=== PATIENT | female | born 1940 | race Caucasian/White ===

== ENCOUNTER 2017-03-21 15:56 | Emergency (ER) | payer MEDICARE ==
[2017-03-21] MEDS ORDERED: Sodium Chloride 0.9% 1,000 ML IV ONE ×2 (16:19)
[2017-03-21] MEDS ORDERED: Sodium Chloride 0.9% 1,000 ML ONE (16:30)
[2017-03-21 16:49] LABS: BASO % 0.5 % (0.0-2.0); EOS % 0.2 % (0.0-4.0); HEMATOCRIT 43.9 % (34.0-47.0); LYMPH # 1.1 K/uL (1.0-4.3); LYMPH % 15.2 % (20.0-40.0); MEAN CELL VOLUME 84.6 fL (81.0-99.0); MEAN CORPUSCULAR HEMOGLOBIN 27.4 pg (27.0-31.0); MEAN CORPUSCULAR HGB CONC 32.4 g/dL (33.0-37.0); MEAN PLATELET VOLUME 8.8 fL (7.2-11.7); MONO # 0.2 K/uL (0.0-0.8); MONO % 2.8 % (0.0-10.0); RED CELL DISTRIBUTION WIDTH 14.1 % (11.5-14.5); WHITE BLOOD COUNT 7.1 K/uL (4.8-10.8)
--- NOTE | 2017-03-21 16:49 | C.PDOC ---
History Of Present Illness 76-year-old female, presents to the emergency department with complaints of dizziness, that developed after breakfast this morning, which was followed by multiple episodes of non-bloody/non-bilious vomiting. Patient states she has mild epigastric pain, and has not taken any meds for relief. Patient denies headaches, ringing in ears, shortness of breath, chest pain or any other associated symptoms. No other complaints at this time. Time Seen by Provider: 03/21/17 16:08 Chief Complaint (Nursing): Abdominal Pain History Per: Patient History/Exam Limitations: no limitations Onset/Duration Of Symptoms: Days Current Symptoms Are (Timing): Still Present Past Medical History Reviewed: Historical Data, Nursing Documentation, Vital Signs Vital Signs: Last Vital Signs Temp 98.1 F 03/21/17 18:36 Pulse 80 03/21/17 18:36 Resp 16 03/21/17 18:36 BP 122/81 03/21/17 18:36 Pulse Ox 96 03/21/17 18:53 - Medical History PMH: HTN, Hypercholesterolemia Family History: States: Unknown Family Hx - Social History Hx Alcohol Use: No Hx Substance Use: No - Immunization History Hx Tetanus Toxoid Vaccination: No Hx Influenza Vaccination: Yes Hx Pneumococcal Vaccination: No Review Of Systems Except As Marked, All Systems Reviewed And Found Negative. Cardiovascular: Negative for: Chest Pain Respiratory: Negative for: Shortness of Breath Gastrointestinal: Positive for: Nausea, Vomiting, Abdominal Pain Neurological: Positive for: Dizziness Physical Exam - Physical Exam Appears: Non-toxic, No Acute Distress Skin: Normal Color, Warm, Dry Eye(s): bilateral: Normal Inspection, PERRL, EOMI Neck: Normal Cardiovascular: Rhythm Regular, No Murmur Respiratory: Normal Breath Sounds, No Rales, No Rhonchi Gastrointestinal/Abdominal: Normal Exam, Soft, No Tenderness Back: Normal Inspection Extremity: Normal ROM Neurological/Psych: Oriented x3, Normal Speech, Normal Cognition, No Cerebellar Signs Gait: Steady ED Course And Treatment - Laboratory Results Result Diagrams: 03/21/17 16:41 03/21/17 16:41 ECG: Interpreted By Me ECG Rhythm: Sinus Rhythm ECG Interpretation: No Acute Changes Interpretation Of ECG: LVH Rate From EC O2 Sat by Pulse Oximetry: 96 - CT Scan/US head Other Rad Studies (CT/US): Radiology Report Reviewed CT/US Interpretation: Accession No. : [id number]. Patient Name / ID : LUCIE DENSON / [id number]. Exam Date : 03/21/2017 16:57:01 ( Approved ). Study Comment : Sex / Age : F / 76Y. Creator : Pal Hernandez. Dictator : Pal Hernandez. Manager Of Purchasing : Fire Operations Forester : Pal Hernandez. Approver2 : Report Date : 03/21/2017 17:04:01. My Comment : . PROCEDURE: CT HEAD WITHOUT CONTRAST. HISTORY: dizzness. COMPARISON: Comparison is made to the previous MRI of the brain dated 12/06/2014. TECHNIQUE: Axial computed tomography images were obtained through the head/brain without intravenous contrast. Radiation dose: Total exam DLP = 805.38 mGy-cm. This CT exam was performed using one or more of the following dose reduction techniques: Automated exposure control, adjustment of the mA and/or kV according to patient size, and/or use of iterative reconstruction technique. FINDINGS: HEMORRHAGE: No intracranial hemorrhage. BRAIN: No mass effect or edema. Mild atrophy and mild chronic microvascular white matter ischemic disease are again noted. VENTRICLES: Unremarkable. No hydrocephalus. CALVARIUM: Unremarkable. PARANASAL SINUSES: Unremarkable as visualized. No significant inflammatory changes. MASTOID AIR CELLS: Unremarkable as visualized. No inflammatory changes. OTHER FINDINGS: None. IMPRESSION: No evidence of acute intracranial hemorrhage intracranial collection mass effect or midline shift. Mild atrophy and chronic microvascular ischemic disease. Medical Decision Making Medical Decision Making: Pt feeling better post w/u CT LAbs EKS unremarkable No indication of central cause Plan dc home pcp follow up Disposition - Disposition Referrals: Florecita Jimenez MD [Non-Staff] - Disposition: HOME/ ROUTINE Disposition Time: 18:38 Condition: FAIR Additional Instructions: Return to the ED for any new or worsening symptoms Follow up with dr Villanueva this week Prescriptions: Meclizine HCl 1 tab PO TID PRN #20 tablet PRN Reason: .dizzness Instructions: Dizziness (ED) - Clinical Impression Clinical Impression: Dizziness - Scribe Statement The provider has reviewed the documentation as recorded by the Saraibbaldev Kaminski All medical record entries made by the Saraibe were at my direction and personally dictated by me. I have reviewed the chart and agree that the record accurately reflects my personal performance of the history, physical exam, medical decision making, and the department course for this patient. I have also personally directed, reviewed, and agree with the discharge instructions and disposition.
--- NOTE | 2017-03-21 17:05 | CT ---
PROCEDURE: CT HEAD WITHOUT CONTRAST. HISTORY: dizzness COMPARISON: Comparison is made to the previous MRI of the brain dated 12/06/2014 TECHNIQUE: Axial computed tomography images were obtained through the head/brain without intravenous contrast. Radiation dose: Total exam DLP = 805.38 mGy-cm. This CT exam was performed using one or more of the following dose reduction techniques: Automated exposure control, adjustment of the mA and/or kV according to patient size, and/or use of iterative reconstruction technique. FINDINGS: HEMORRHAGE: No intracranial hemorrhage. BRAIN: No mass effect or edema. Mild atrophy and mild chronic microvascular white matter ischemic disease are again noted. VENTRICLES: Unremarkable. No hydrocephalus. CALVARIUM: Unremarkable. PARANASAL SINUSES: Unremarkable as visualized. No significant inflammatory changes. MASTOID AIR CELLS: Unremarkable as visualized. No inflammatory changes. OTHER FINDINGS: None. IMPRESSION: No evidence of acute intracranial hemorrhage intracranial collection mass effect or midline shift. Mild atrophy and chronic microvascular ischemic disease.
[2017-03-21 17:14] LABS: CHLORIDE 97 mmol/L (98-107); POTASSIUM 4.2 mmol/L (3.6-5.2); SODIUM 136 mmol/L (132-148)
[2017-03-21 17:17] LABS: ALB/GLOB RATIO 1.2 (1.0-2.1); ALKALINE PHOSPHATASE 85 U/L (38-126); ALT/SGPT 30 U/L (9-52); AST/SGOT 47 U/L (14-36); BILIRUBIN,TOTAL 0.9 mg/dL (0.2-1.3); BLOOD UREA NITROGEN 17 mg/dL (7-17); CARBON DIOXIDE 28 mmol/L (22-30); GFR AFRICAN-AMERICAN > 60; GLUCOSE,RANDOM 119 mg/dL (65-105); TOTAL PROTEIN 7.5 g/dL (6.3-8.3)
[2017-03-21 18:37] VITALS: BP 122/81; PULSE 80; RESP 16; TEMP 98.1
[2017-03-21 18:41] VITALS: O2SAT 96
[2017-03-21 18:59] LABS: RBC URINE 3 /hpf (0-3); URINE BACTERIA FEW (<OCC); URINE BILIRUBIN NEGATIVE (NEGATIVE); URINE BLOOD NEGATIVE (NEGATIVE); URINE COLOR Yellow (YELLOW); URINE GLUCOSE (UA) NORMAL (Normal); URINE KETONE 1+ mg/dL (NEGATIVE); URINE LEUKOCYTE ESTERASE NEG Leu/uL (Negative); URINE PROTEIN NEGATIVE (NEGATIVE); URINE UROBILINOGEN NORMAL mg/dL (0.2-1.0); WBC URINE 4 /hpf (0-5)
--- NOTE | 2017-03-23 00:10 | CARD ---
APPROVED REPORT EKG Measurement Heart [id number] <Conclusion> Normal sinus rhythm Minimal voltage criteria for LVH, may be normal variant Nonspecific ST abnormality Abnormal ECG
== END 2017-03-21 19:14 | disposition home or self-care (01) ==
LOC: C.ER 15:56
DX: R42 Dizziness and giddiness (principal)
CPT/HCPCS: 70450; 80053; 81001; 82948; 84484; 85025; 93005; 96361; 96374; 99285; J2405; J7040

== ENCOUNTER 2019-02-09 07:18 | Day surgery (SDC) | payer OTHER, MEDICAID ==
[2019-02-08 14:07] VITALS: BMI 22.3
[2019-02-09] MEDS ORDERED: Lactated Ringer's 1,000 ML IV ONE (08:50)
[2019-02-09] MEDS ORDERED: Propofol 10 mg/ml Inj (20 ML) ONE (08:53)
[2019-02-09] MEDS ORDERED: Midazolam 2 MG/2 ML VIAL ONE (08:54)
[2019-02-09 09:47] VITALS: TEMP 98.1
[2019-02-09 10:22] VITALS: BP 130/60; PULSE 70; RESP 19; O2SAT 98
== END 2019-02-09 10:17 | disposition home or self-care (01) ==
LOC: C.ENDO 07:18
PROVIDERS: ATTEND Internal Medicine Gastroenterology
DX: Z12.11 Encounter for screening for malignant neoplasm of colon (principal); D12.0 Benign neoplasm of cecum; K64.8 Other hemorrhoids
CPT/HCPCS: 45385; 88305; J2704; J7120

== ENCOUNTER 2019-02-22 12:27 | Emergency (ER) | payer OTHER ==
--- NOTE | 2019-02-22 13:01 | C.PDOC ---
History Of Present Illness Patient is a 78 year old female with pmhx of HLD and pre-diabetes who presents to the ED today accompanied by family with reports of severe dizziness followed by an episode of vomiting prior to arrival. Patient reports she was at a matt class at her senior center and began to feel dizzy. Patient reports as though the room was spinning and had difficulty maintaining her equilibrium when walking. Patient then had an witnessed episode of emesis which was reported as pinkish tinged, however patient states it consisted of saliva and fruit salad she had prior to class. Patient denies recent travel, dietary changes, sick contacts, confusion, LOC, fevers, chest pain, SOB, nausea, diarrhea. <Joie Peacock - Last Filed: 02/22/19 14:33> History Per: Patient History/Exam Limitations: no limitations Onset/Duration Of Symptoms: Hrs Current Symptoms Are (Timing): Still Present Activity At Onset Of Symptoms: Exertional Activity Possible Causative Factor(s): Vertigo Fall Associated With With Symptoms: No Recent travel outside of the [place]: No Additional History Per: Family - Symptoms Of CVA Associated Symptoms: Decreased Ability To Walk. denies: Impaired Speech Recent Aspirin Use: Yes (Last Taken) <Joie Peacock - Last Filed: 02/22/19 14:33> <Vinayak Urban - Last Filed: 02/22/19 14:44> Time Seen by Provider: 02/22/19 12:34 Chief Complaint (Nursing): Dizziness/Lightheaded Past Medical History Reviewed: Historical Data, Nursing Documentation, Vital Signs Vital Signs: Last Vital Signs Temp 98.0 F 02/22/19 12:38 Pulse 67 02/22/19 12:38 Resp 20 02/22/19 12:38 BP 159/87 H 02/22/19 12:38 Pulse Ox 97 02/22/19 12:38 - Medical History PMH: Alzheimer's Disease, Anxiety, Arthritis, HTN (NO MEDICATION), Hypercholesterolemia, Osteoporosis Denies: Depression, Fractures, Chronic Kidney Disease Surgical History: No Surg Hx Family History: States: Unknown Family Hx - Social History Hx Tobacco Use: No Hx Alcohol Use: No Hx Substance Use: No - Immunization History Hx Tetanus Toxoid Vaccination: No Hx Influenza Vaccination: Yes Hx Pneumococcal Vaccination: No <Joie Peacock - Last Filed: 02/22/19 14:33> Vital Signs: Last Vital Signs Temp 98.0 F 02/22/19 12:38 Pulse 75 02/22/19 13:36 Resp 17 02/22/19 13:36 BP 114/70 02/22/19 13:36 Pulse Ox 97 02/22/19 14:33 <Vinayak Urban - Last Filed: 02/22/19 14:44> Review Of Systems Constitutional: Negative for: Fever, Chills, Weakness Eyes: Negative for: Vision Change Cardiovascular: Negative for: Chest Pain, Palpitations, Light Headedness Respiratory: Negative for: Cough, Shortness of Breath Gastrointestinal: Positive for: Vomiting. Negative for: Nausea, Abdominal Pain, Diarrhea, Melena, Hematochezia Genitourinary: Negative for: Dysuria Neurological: Positive for: Incoordination, Dizziness (vertigo). Negative for: Weakness, Numbness, Confusion, Altered Mental Status <Joie Peacock - Last Filed: 02/22/19 14:33> Physical Exam - Physical Exam Appears: Non-toxic, No Acute Distress Skin: Normal Color, Warm, Dry, No Pale Head: Atraumatic, Normacephalic Eye(s): bilateral: Normal Inspection, PERRL, EOMI, Other (slight nystagmus when looking left) Oral Mucosa: Moist Neck: Normal Cardiovascular: Rhythm Regular, No Edema, No Murmur Respiratory: Normal Breath Sounds, No Accessory Muscle Use Gastrointestinal/Abdominal: Normal Exam, Bowel Sounds, Soft, No Tenderness, No Distention Extremity: No Tenderness, No Calf Tenderness Neurological/Psych: Oriented x3, Normal Speech, Normal Cognition, Normal Motor, Normal Sensation <Joie Peacock - Last Filed: 02/22/19 14:33> ED Course And Treatment - Laboratory Results Result Diagrams: 02/22/19 13:27 02/22/19 13:27 Lab Interpretation: Normal ECG: Viewed By Me ECG Rhythm: Sinus Rhythm ECG Interpretation: Abnormal Interpretation Of ECG: Normal Sinus Rhythm. Possible left atrial enlargement. Nonspecific ST abnormality. Abnormal EKG Rate From EC O2 Sat by Pulse Oximetry: 97 Pulse Ox Interpretation: Normal Progress Note: Patient reevaluated at bedside. Reports improvement in symptoms of vertigo. No nausea and vomiting since arrival. Able to ambulate with assistance without vertigo. Gait steady. Reevaluation Time: 02:20 <Joie Peacock - Last Filed: 02/22/19 14:33> - Laboratory Results Result Diagrams: 02/22/19 13:27 02/22/19 13:27 Lab Results: Total Bilirubin 0.5 mg/dL (0.2-1.3) 02/22/19 13:27 AST 35 U/L (14-36) 02/22/19 13:27 ALT 23 U/L (9-52) 02/22/19 13:27 Alkaline Phosphatase 92 U/L (38-126) 02/22/19 13:27 Total Protein 7.4 g/dL (6.3-8.3) 02/22/19 13:27 Albumin 4.4 g/dL (3.5-5.0) 02/22/19 13:27 Globulin 3.0 gm/dL (2.2-3.9) 02/22/19 13:27 Albumin/Globulin Ratio 1.5 (1.0-2.1) 02/22/19 13:27 Lipase 231 U/L (23-300) 02/22/19 13:27 <Vinayak Urban - Last Filed: 02/22/19 14:44> Medical Decision Making Medical Decision Makin78 year old female presenting with vertigo induced emesis CBC CMP Lipase EKG Meclizine 50mg Labs WNL Symptoms improved with Meclizine <Joie Peacock - Last Filed: 02/22/19 14:33> Medical Decision Making: Seen and examined with resident. 78 y/o F p/w vertigo. On exam, positive Dixon Hallpike. <Vinayak Urban - Last Filed: 02/22/19 14:44> Disposition Counseled Patient/Family Regarding: Studies Performed, Diagnosis, Need For Followup, Rx Given - Disposition Disposition Time: 14:28 - POA Present On Arrival: None <Joie Peacock - Last Filed: 02/22/19 14:33> <Vinayak Urban - Last Filed: 02/22/19 14:44> - Disposition Referrals: Alex Amin MD [Staff Provider] - Disposition: HOME/ ROUTINE Condition: STABLE Prescriptions: Meclizine [Antivert] 25 mg PO TID PRN #20 tab PRN Reason: Dizziness Instructions: Vertigo (a Type of Dizziness) Forms: [facility] (Bulgarian) - Clinical Impression Clinical Impression: Vertigo
[2019-02-22 13:04] VITALS: TEMP 98; O2SAT 97; BMI 23.8
[2019-02-22 13:31] LABS: BASO % 0.4 % (0.0-2.0); EOS # 0.1 K/uL (0.0-0.7); EOS % 1.9 % (0.0-4.0); HEMOGLOBIN 14.1 g/dL (11.0-16.0); MEAN CORPUSCULAR HEMOGLOBIN 29.5 pg (27.0-31.0); MEAN CORPUSCULAR HGB CONC 33.6 g/dL (33.0-37.0); MEAN PLATELET VOLUME 9.4 fL (7.2-11.7); MONO # 0.4 K/uL (0.0-0.8); MONO % 5.9 % (0.0-10.0); NEUT # 4.8 K/uL (1.8-7.0); NEUT % 64.8 % (50.0-75.0); NRBC % 0.1 % (0.0-2.0); RBC 4.77 Mil/uL (3.80-5.20); RED CELL DISTRIBUTION WIDTH 14.5 % (11.5-14.5); WHITE BLOOD COUNT 7.3 K/uL (4.8-10.8)
[2019-02-22 13:33] LABS: MEAN CELL VOLUME 87.9 fL (81.0-99.0)
[2019-02-22 13:45] LABS: ALB/GLOB RATIO 1.5 (1.0-2.1); ALBUMIN 4.4 g/dL (3.5-5.0); ALT/SGPT 23 U/L (9-52); AST/SGOT 35 U/L (14-36); BLOOD UREA NITROGEN 29 mg/dL (7-17); CALCIUM 10.4 mg/dl (8.6-10.4); GFR NON-AFRICAN AMERICAN > 60; LIPASE 231 U/L (23-300)
[2019-02-22 14:08] VITALS: BP 114/70; PULSE 75; RESP 17
--- NOTE | 2019-02-24 00:03 | CARD ---
APPROVED REPORT Date of service: 02/22/2019 EKG Measurement Heart [id number] <Conclusion> Normal sinus rhythm Possible Left atrial enlargement Nonspecific ST abnormality Abnormal ECG
== END 2019-02-22 14:49 | disposition home or self-care (01) ==
LOC: C.ER 12:27
DX: R42 Dizziness and giddiness (principal); E78.00 Pure hypercholesterolemia, unspecified; I10 Essential (primary) hypertension; G30.9 Alzheimer's disease, unspecified